=== PATIENT | male | born 1995 | race Caucasian/White ===

== ENCOUNTER 2017-09-26 05:42 | Outpatient (CLI) | payer MEDICAID, OTHER ==
[~2017-09-26] VITALS: Ht 188 cm; Wt 49.0 kg
[~2017-09-26 05:42] MED LIST: AMOX250S70 PO; ETHO250C6 PO
[2017-09-26] MEDS ORDERED: ETHO250S2 PO ×2 (11:08)
--- NOTE | 2017-09-27 14:06 | Physician Query-Final Dx ---
HAL LIVE 09/27/17 1406: Clinic Account Progress/Dx Physician Query: Per Outpatient coding guidelines - the diagnosis of possible cannot be coded - Please give another diagnosis and/or sign/symptom thank you Date of Service Sep 26, 2017 at 05:42 HAI ANTONIO MD 09/29/17 0700: Clinic Account Progress/Dx DIAGNOSIS: Diagnosis right otorrhea/tm perforation HAL LIVE Sep 27, 2017 14:06 HAI ANTONIO MD Sep 29, 2017 07:00
== END 2017-09-26 11:16 ==
LOC: PREOP 05:42
PROVIDERS: ATTEND Otolaryngology Otolaryngology/Facial Plastic Surgery
DX: Z01.818 Encounter for other preprocedural examination (principal); H92.11 Otorrhea, right ear; H72.91 Unspecified perforation of tympanic membrane, right ear

== ENCOUNTER 2017-09-28 06:08 | Day surgery (SDC) | payer MEDICAID ==
[~2017-09-28] VITALS: Ht 188 cm; Wt 49.0 kg
[~2017-09-28 06:08] MED LIST changes: +ETHO250S2 PO
--- OUTSIDE RECORDS SUMMARY | 2017-09-28 06:12 | XMS REPORT ---
Author Author Jessica Khan [facility] Address [address] [place], [place] [address] Care Team Providers Care Systems Administrator Name Role Phone Jessica Khan PCP Unavailable Mehdi Prasad PreferredProvider Unavailable Allergies and Adverse Reactions Name Reaction Notes Barry zhang Plan of Treatment Planned Activity Comments Planned Date Planned Time Plan/Goal Ethosuximide level 06/02/2015 12:00 AM Medications Active Name Start Date Estimated Completion Date SIG Comments ethosuximide 250 mg/5 mL oral solution 10/13/2014 TAKE 5 MILLILITERS BY ORAL ROUTE 2 TIMES A DAY FOR 90 DAYS ethosuximide 250 mg/5 mL oral solution 03/29/2015 TAKE 5 MILLILITERS BY ORAL ROUTE 2 TIMES A DAY FOR 90 DAYS ethosuximide 250 mg/5 mL oral solution 06/21/2015 TAKE 5 MILLILITERS BY ORAL ROUTE 2 TIMES A DAY FOR 90 DAYS ethosuximide 250 mg/5 mL oral solution 09/17/2015 TAKE 5 MILLILITERS BY ORAL ROUTE 2 TIMES A DAY FOR 90 DAYS Flonase Allergy Relief 50 mcg/actuation nasal spray,suspension 10/05/2015 inhale 1 puff by nasal route 2 times a day amoxicillin-pot clavulanate 250-62.5 mg/5 mL oral suspension for reconstitution 08/08/2016 08/15/2016 take 10 milliliters by oral route every 12 hours for 7 days Name Start Date Expiration Date SIG Comments Tamiflu 6 mg/mL oral suspension for reconstitution 08/15/2013 08/20/2013 take 12.5 milliliters (75 mg) by oral route 2 times per day for 5 days ethosuximide 250 mg/5 mL oral solution 01/26/2014 10/23/2014 take 5 milliliters by oral route 2 times a day for 90 days Ciprodex 0.3-0.1 % otic drops,suspension 01/26/2014 02/02/2014 instill 4 drops into affected ear(s) by otic route 2 times per day for 7 days amoxicillin 400 mg/5 mL oral suspension for reconstitution 05/19/2014 12.5ml BID x7 days. Augmentin 250-62.5 mg/5 mL oral suspension for reconstitution 05/21/2015 take 10 milliliters by oral route every 12 hours for 7 days amoxicillin 400 mg/5 mL oral suspension for reconstitution 06/18/20162015 take 16 milliliters by oral route 2 times a day for 7 days Discontinued Name Start Date Discontinued Date SIG Comments loperamide 2 mg oral capsule 06/11/2015 10/04/2015 take 2 capsules (4 mg) by oral route after 1st loose stool, followed by 1 capsule after each subsequent loose stool not to exceed 16 mg/day Zyrtec 10 mg oral tablet 10/05/2015 08/08/2016 take 1 tablet by oral route daily ofloxacin 0.3 % otic drops 12/25/2015 08/08/2016 instill 10 drops (1.5 mg) into right ear by otic route 2 times per day Problem List Description Status Onset Cerebral palsy Active Seizure disorder Active Vital Signs Date Time BP-Sys(mm[Hg] BP-Maria Esther(mm[Hg]) HR(bpm) RR(rpm) Temp WT HT HC BMI BSA BMI Percentile O2 Sat(%) 08/08/2016 8:28:00 AM 126 mmHg 72 mmHg 92 bpm 18 rpm 98.1 F 109.125 lbs 73 in 14.40 kg/m2 1.60 m2 97 % 04/21/2016 11:39:00 AM 20 rpm 97.1 F 108 lbs 73 in 14.2487 kg/ m 1.5884 m 12/24/2015 10:28:00 AM 122 mmHg 62 mmHg 67 bpm 18 rpm 98.2 F 108.062 lbs 73 in 14.26 kg/m2 1.59 m2 98 % 10/04/2015 2:52:00 PM 124 mmHg 66 mmHg 96 bpm 18 rpm 96.5 F 108 lbs 73 in 14.2487 kg/m 1.5884 m 97 % 05/07/2015 9:30:00 AM 112 mmHg 60 mmHg 65 bpm 16 rpm 96 F 109 lbs 73 in 14.38 kg/m2 1.60 m2 98 % 04/23/2014 1:36:00 PM 120 mmHg 68 mmHg 85 bpm 18 rpm 97.4 F 104.125 lbs 73 in 13.7375 kg/m 1.5597 m 97 % 01/26/2014 1:33:00 PM 92 bpm 20 rpm 97.5 F 106 lbs 73 in 13.98 kg/m2 1.57 m2 08/15/2013 9:17:00 AM 102 bpm 20 rpm 97 F 107 lbs 99 % 08/08/2012 10:18:00 AM 102 mmHg 60 mmHg 94 bpm 20 rpm 97.9 F 107 lbs 73 in 14.1168 kg/m 1.5811 m 100 % 95 % Social History Name Description Comments Tobacco Never smoker Lives with both mom and dad Pets at home (outside) dog No smoke exposure 12/24/2015 - student (high school) attends special needs classes at [employer] ([phone]) History of Procedures Date Ordered Description Order Status 06/30/2016 12:00 AM INFLUENZA VAC 4 VALENT PRSRV FREE 3 YRS PLUS IM Reviewed 08/08/2012 12:00 AM Flu > 35 months RHC Reviewed 09/30/2012 12:00 AM IMMUNIZATION ADMIN Reviewed 09/30/2012 12:00 AM VFC Varivax (Chicken Pox Vac) Reviewed 08/15/2013 12:00 AM INFLUENZA A/B AG EIA Reviewed 04/23/2014 12:00 AM Kenalog, Per 10 Mg [facility][id number] Reviewed 04/23/2014 12:00 AM THER/PROPH/DIAG INJ SC/IM Reviewed Results Summary Data and Description Results 08/15/2013 10:10 AM INFLUENZA A & B INFLUENZA A POSITIVE 06/03/2015 11:05 AM Ethosuximide (Zarontin),Serum 52 History Of Immunizations Name Date Admin Mfg Name Mfg Code Trade Name Lot# Route Inj Vis Given Vis Pub CVX Influenza 08/08/2012 sanofi pasteur PMC Fluzone-PF > 3 Years [id number] Intramuscular Right Deltoid 08/08/2012 01/29/2012 141 Varicella 09/30/2012 [employer] MSD Varivax [id number] Subcutaneous Right Arm 10/10/2007 10/10/2007 21 Tdap 08/27/2006 Not Entered NE Not Entered Not Entered Not Entered 07/3007/30/2016 999 DTaP 10/27/1998 Not Entered NE Not Entered Not Entered Not Entered 07/3007/30/2016 20 MMR 10/27/1998 Not Entered NE Not Entered Not Entered Not Entered 201607/30/2016 03 Tdap 08/27/2006 Not Entered NE Not Entered Not Entered Not Entered 07/3007/30/2016 115 Influenza 06/30/2016 [facility] PMC Fluzone [id number] Intramuscular Left Deltoid 06/30/2016 03/17/2014 141 History of Past Illness Name Date of Onset Comments Cerebral palsy Seizure disorder Flu Aug 08 2012 10:18AM Well Child Examination Aug 08 2012 10:18AM Infantile cerebral palsy, unspecified Aug 08 2012 10:18AM Personal history of mental disorder; other mental disorders Aug 08 2012 10: 18AM Varicella Sep 30 2012 1:47PM Nasal congestion Aug 15 2013 9:19AM Upper Respiratory Infection Aug 15 2013 9:19AM Influenza Aug 15 2013 9:19AM Cerebral palsy Jan 26 2014 1:35PM Seizure Disorder Jan 26 2014 1:35PM Otitis media Jan 26 2014 1:35PM Right Otitis Media, Acute Apr 23 2014 1:40PM Upper Respiratory Infections Apr 23 2014 1:40PM Acute suppurative otitis media of right ear without spontaneous rupture of tympanic membrane, recurrence not specified May 07 2015 9:34AM Cerebral palsy May 07 2015 9:34AM Seizure disorder May 07 2015 9:34AM terminal carman use of drug Jun 02 2015 1:42PM Viral gastroenteritis Oct 04 2015 2:55PM Allergic rhinitis, unspecified allergic rhinitis type Oct 04 2015 2:55PM Acute suppurative otitis media of right ear without spontaneous rupture of tympanic membrane, recurrence not specified Dec 24 2015 10:30AM Acute suppurative otitis media of left ear without spontaneous rupture of tympanic membrane, recurrence not specified Apr 21 2016 11:39AM Flu Vaccine Jun 30 2016 4:53PM Recurrent acute suppurative otitis media of right ear without spontaneous rupture of tympanic membrane Aug 08 2016 8:30AM Payers Insurance Name Company Name Plan Name Plan Number Policy Number Policy Group Number Start Date [facility] [id number] N/A BCBS [facility] [id number] N/A History of Encounters Visit Date Visit Type Provider 08/08/2016 Office visit Jessica Khan APRN 06/30/2016 Nurse visit Jessica Khan WINDOW AND SIDING CRAFTSMAN 04/21/2016 Office visit Arturo Domínguez WINDOW AND SIDING CRAFTSMAN 12/24/2015 Office visit Jessica Khan WINDOW AND SIDING CRAFTSMAN 10/04/2015 Office visit Jessica Khan WINDOW AND SIDING CRAFTSMAN 05/07/2015 Office visit Arturo Domínguez WINDOW AND SIDING CRAFTSMAN 04/23/2014 Office visit Jessica Khan WINDOW AND SIDING CRAFTSMAN 01/26/2014 Office visit Arturo Domínguez WINDOW AND SIDING CRAFTSMAN 08/15/2013 Office visit Vanessa Minaya MD 09/30/2012 Nurse visit Vanessa Minaya MD 08/08/2012 Office visit Vanessa Minaya MD
--- OUTSIDE RECORDS SUMMARY | 2017-09-28 06:12 | XMS REPORT ---
Author Author Jessica Khan [facility] Address [address] [place], [place] [address] Care Team Providers Care Welding Machine Operator Gas Metal Arc Name Role Phone Jessica Khan PCP Unavailable Mehdi Prasad PreferredProvider Unavailable Allergies and Adverse Reactions Name Reaction Notes Barry zhang Plan of Treatment Planned Activity Comments Planned Date Planned Time Plan/Goal Ethosuximide level 06/02/2015 12:00 AM Flu vaccine 3 yrs & older, Quadrivalent, Preservative-free - [facility] Medicaid ( single-dose syringe) 06/30/2016 12:00 AM Medications Active Name Start Date [...] by nasal route 2 times a day Zyrtec 10 mg oral tablet 10/05/2015 take 1 tablet by oral route daily ofloxacin 0.3 % otic drops 12/25/2015 instill 10 drops (1.5 mg) into right ear by otic route 2 times per day Name Start Date Expiration Date SIG Comments [...] loose stool not to exceed 16 mg/day Problem List Description Status Onset Cerebral palsy Active Seizure disorder Active Vital Signs Date Time BP-Sys(mm[Hg] BP-Maria Esther(mm[Hg]) HR(bpm) RR(rpm) Temp WT HT HC BMI BSA BMI Percentile O2 Sat(%) 04/21/2016 11:39:00 AM 20 rpm 97.1 F 108 lbs 73 in 14.25 kg/ m2 1.59 m2 12/24/2015 10:28:00 AM 122 mmHg 62 mmHg 67 bpm 18 rpm 98.2 F 108.062 lbs 73 in 14.257 kg/m 1.5889 m 98 % 10/04/2015 2:52:00 PM 124 mmHg 66 mmHg 96 bpm 18 rpm 96.5 F 108 lbs 73 in 14.25 kg/m2 1.59 m2 97 % 05/07/2015 9:30:00 AM 112 mmHg 60 mmHg 65 bpm 16 rpm 96 F 109 lbs 73 in 14.3807 kg/m 1.5958 m 98 % 04/23/2014 1:36:00 PM 120 mmHg 68 mmHg 85 bpm 18 rpm 97.4 F 104.125 lbs 73 in 13.74 kg/m2 1.56 m2 97 % 01/26/2014 1:33:00 PM 92 bpm 20 rpm 97.5 F 106 lbs 73 in 13.9849 kg/m 1.5737 m 08/15/2013 9:17:00 AM 102 bpm 20 rpm 97 F 107 lbs 99 % 08/08/2012 10:18:00 AM 102 mmHg 60 mmHg 94 bpm 20 rpm 97.9 F 107 lbs 73 in 14.12 kg/m2 1.58 m2 100 % 95 % Social History Name Description Comments Tobacco Never smoker Lives with both mom and dad Pets at home (outside) dog No smoke exposure 12/24/2015 - student (high school) attends special needs classes at [employer] [facility] ([phone]) History of Procedures Date Ordered Description Order Status 08/08/2012 12:00 AM Flu > 35 months RHC Reviewed 09/30/2012 12:00 AM IMMUNIZATION ADMIN Reviewed 09/30/2012 12:00 AM VFC Varivax (Chicken Pox Vac) Reviewed 08/15/2013 12:00 AM INFLUENZA A/B AG EIA Reviewed 04/23/2014 12:00 AM Kenalog, Per 10 Mg [facility]#[id number] RHC Medicaid Reviewed 04/23/2014 12:00 AM THER/PROPH/DIAG INJ SC/IM Reviewed Results Summary Data and Description Results 08/15/2013 10:10 AM INFLUENZA A & B INFLUENZA A POSITIVE 06/03/2015 11:05 AM Ethosuximide (Zarontin),Serum 52 History Of Immunizations Name Date Admin Mfg Name Mfg Code Trade Name Lot# Route Inj Vis Given Vis Pub CVX Influenza 08/08/2012 sanofi pasteur PMC Fluzone-PF > 3 Years [id number] Intramuscular Right Deltoid 08/08/2012 01/29/2012 141 Varicella 09/30/2012 Merck & Co., Inc. MSD Varivax [id number] Subcutaneous Right Arm 10/10/2007 10/10/2007 21 Tdap 08/27/2006 Not Entered NE Not Entered Not Entered Not Entered 07/3007/30/2015 999 DTaP 10/27/1998 Not Entered NE Not Entered Not Entered Not Entered 07/3007/30/2015 20 MMR 10/27/1998 Not Entered NE Not Entered Not Entered Not Entered 201507/30/2015 03 Tdap 08/27/2006 Not Entered NE Not Entered Not Entered Not Entered 07/3007/30/2015 115 History of Past Illness Name Date of [...] 9:34AM Seizure disorder May 07 2015 9:34AM half-way use of drug Jun 02 2015 1:42PM [...] 11:39AM Flu Vaccine Jun 30 2016 4:53PM Payers Insurance Name Company Name Plan Name Plan Number Policy Number Policy Group Number [facility] [id number] [id number] N/A History of Encounters Visit Date Visit Type Provider 06/30/2016 Nurse visit Jessica Khan MANAGER COST 04/21/2016 Office visit Arturo Domínguez MANAGER COST 12/24/2015 Office visit Jessica Khan MANAGER COST 10/04/2015 Office visit Jessica Khan MANAGER COST 05/07/2015 Office visit Arturo Domínguez MANAGER COST 04/23/2014 Office visit Jessica Khan MANAGER COST 01/26/2014 Office visit Arturo Domínguez MANAGER COST 08/15/2013 Office visit Vanessa Minaya MD 09/30/2012 Nurse visit Vanessa Minaya MD 08/08/2012 Office visit Vanessa Minaya MD
--- OUTSIDE RECORDS SUMMARY | 2017-09-28 06:13 | XMS REPORT ---
Author Author Angeline Morillo [facility] Address [address] [place], [place] [address] Care Team Providers Care Cereal Supervisor Name Role Phone Angeline Moirllo PCP Mehdi Prasad PreferredProvider Unavailable Allergies and Adverse Reactions Name Reaction Notes Barry zhang Plan of Treatment Not available. Medications Active Name Start Date Estimated Completion [...] DAYS ethosuximide 250 mg/5 mL oral solution 11/15/2016 TAKE 5 MILLILITERS BY ORAL ROUTE 2 TIMES A DAY FOR 90 DAYS ethosuximide 250 mg/5 mL oral solution 02/02/2017 TAKE 5 MILLILITERS BY ORAL ROUTE 2 TIMES A DAY FOR 90 DAYS Ciprodex 0.3-0.1 % otic (ear) drops,suspension 05/02/2017 instill 4 drops into right ear by otic route 2 times per day for 7 days Name Start Date Expiration [...] 2 times a day for 7 days amoxicillin-pot clavulanate 250-62.5 mg/5 mL oral suspension for reconstitution 10/17/2016 10/24/2016 take 10 milliliters by oral route every 12 hours for 7 days Discontinued Name Start Date Discontinued Date SIG Comments loperamide 2 mg oral capsule 06/11/2015 10/04/2015 take 2 capsules (4 mg) by oral route after 1st loose stool, followed by 1 capsule after each subsequent loose stool not to exceed 16 mg/day Flonase Allergy Relief 50 mcg/actuation nasal spray,suspension 10/05/20152016 inhale 1 puff by nasal route 2 times a day Zyrtec 10 mg oral tablet 10/05/2015 08/08/2016 take 1 tablet by oral route daily ofloxacin 0.3 % otic drops 12/25/2015 08/08/2016 instill 10 drops (1.5 mg) into right ear by otic route 2 times per day Augmentin 250-62.5 mg/5 mL oral suspension for reconstitution 04/10/20172016 take 18 milliliters by oral route 2 times a day for 7 days Problem List Description Status Onset Cerebral palsy Active Seizure Disorder Active Vital Signs Date Time BP-Sys(mm[Hg] BP-Maria Esther(mm[Hg]) HR(bpm) RR(rpm) Temp WT HT HC BMI BSA BMI Percentile O2 Sat(%) 05/02/2017 8:40:00 AM 106 mmHg 64 mmHg 57 bpm 20 rpm 100 lbs 73 in 13.19 kg/m2 1.53 m2 98 % 04/10/2017 9:53:00 AM 98 bpm 20 rpm 97.9 F 99.375 lbs 73 in 13.1108 kg/m 1.5237 m 97 % 08/08/2016 8:28:00 AM 126 mmHg 72 mmHg [...] (high school) attends special needs classes at [employer] [facility] ([phone]) History of Procedures Date Ordered Description Order Status 06/02/2015 12:00 AM ASSAY OF ETHOSUXIMIDE Reviewed 06/30/2016 12:00 AM INFLUENZA VAC 4 VALENT PRSRV FREE 3 YRS PLUS IM Reviewed 08/08/2012 12:00 AM Flu > 35 months RHC Reviewed 09/30/2012 12:00 AM IMMUNIZATION ADMIN Reviewed 09/30/2012 12:00 AM VFC Varivax (Chicken Pox Vac) Reviewed 08/15/2013 12:00 AM INFLUENZA A/B AG EIA Reviewed 04/23/2014 12:00 AM Kenalog, Per 10 Mg [facility]#[id number] RHC Medicaid Reviewed 04/23/2014 12:00 AM THER/PROPH/DIAG INJ SC/IM Reviewed Results Summary Date and Description Results 08/15/2013 10:10 AM INFLUENZA A & B INFLUENZA A POSITIVE History Of Immunizations Name Date Admin Mfg Name Mfg Code Trade Name Lot# Route Inj Vis Given Vis Pub CVX Influenza 08/08/2012 sanofi pasteur PMC Fluzone-PF > 3 Years [id number] Intramuscular Right Deltoid 08/08/2012 01/29/2012 141 Varicella 09/30/2012 Merck [employer] Co., Inc[employer] MSD Varivax [id number] Subcutaneous Right Arm 10/10/2007 10/10/2007 21 Tdap 08/27/2006 Not Entered NE Not Entered Not Entered Not Entered 07/3007/30/2016 999 DTaP 10/27/1998 Not Entered NE Not Entered Not Entered Not Entered 07/3007/30/2016 20 MMR 10/27/1998 Not Entered NE Not Entered Not Entered Not Entered 201607/30/2016 03 Tdap 08/27/2006 Not Entered NE Not Entered Not Entered Not Entered 07/3007/30/2016 115 Influenza 06/30/2016 sanofi pasteur PMC Fluzone [id number] Intramuscular Left Deltoid 06/30/2016 03/17/2014 141 History of Past Illness Name Date of Onset Comments Cerebral palsy Seizure Disorder Flu Aug 08 2012 10:18AM Well Child [...] Seizure disorder May 07 2015 9:34AM terminal gauger use of drug Jun 02 2015 1:42PM [...] of tympanic membrane Aug 08 2016 8:30AM Otitis media Apr 10 2017 9:57AM Right acute serous otitis media, recurrence not specified May 02 2017 8:43AM Payers Insurance Name Company Name Plan Name Plan Number Policy Number Policy Group Number Start Date [facility] [id number] N/A BCBS [facility] [id number] N/A History of Encounters Visit Date Visit Type Provider 05/02/[address] Angeline Morillo DO 04/10/[address] Angeline Morillo DO 08/08/2016 Office visit Jessica Khan APRN 06/30/2016 Nurse visit Jessica Khan APRN 04/21/2016 Office visit Arturo Domínguez APRN 12/24/2015 Office visit Jessica Khan APRN 10/04/2015 Office visit Jessica Khan APRN 05/07/2015 Office visit Arturo Domínguez APRN 04/23/2014 Office visit Jessica Khan APRN 01/26/2014 Office visit Arturo Domínguez APRN 08/15/2013 Office visit Vanessa Minaya MD 09/30/2012 Nurse visit Vanessa Minaya MD 08/08/2012 Office visit Vanessa Minaya MD
--- OUTSIDE RECORDS SUMMARY | 2017-09-28 06:13 | XMS REPORT ---
Author LENNOX Hein [facility] eClinicalWorks Address Unknown Phone Unavailable Care Team Providers Care Entertainment Director Name Role Phone LENNOX MAHAJAN CP Unavailable Allergies, Adverse Reactions, Alerts Substance Reaction Event Type Vantin Hives Drug Allergy Problems Problem Type Condition Code Onset Dates Condition Status Assessment Otitis media of right ear H66.91 Active Assessment Routine physical examination Z00.00 Active Medications Medication Code System Code Instructions Start Date End Date Status Dosage Augmentin [facility] [address]-39 250-62.5 MG/5ML Orally every 12 hrs Jul 01, 2015 Jul 11, 2015 10 ml Ethosuximide [facility] [address]-98 250 MG/5ML Orally not defined Procedures Procedure Coding System Code Date Office Visit, New Pt., Level 4 CPT-4 36653 Jul 01, 2015 Vital Signs Date/Time: Jul 01, 2015 Temperature 98.3 F Weight 108.7 lbs Height 74 in BMI 13.95 Index Blood Pressure Diastolic 64 mmHg Blood Pressure Systolic 124 mmHg Cardiac Monitoring Heart Rate 68 bpm Results No Known Results Summary Purpose eClinicalWorks Submission
--- OUTSIDE RECORDS SUMMARY | 2017-09-28 06:13 | XMS REPORT ---
Author Author Jessica Khan [facility] Address [address] [place], [place] [address] Care Team Providers Care Enrollment Specialist Name Role Phone Jessica Khan PCP Mehdi Prasad PreferredProvider Allergies and Adverse Reactions Name Reaction Notes Barry zhang Plan of Treatment Planned Activity Comments Planned Date Planned Time Plan/Goal CBC With Auto Differential 07/13/2017 12:00 AM CMP (comprehensive metabolic panel) 07/13/2017 12:00 AM Medications Active Name Start Date Estimated Completion Date SIG Comments ethosuximide 250 mg/5 mL oral solution 10/13/2014 TAKE 5 MILLILITERS BY ORAL ROUTE 2 TIMES A DAY FOR 90 DAYS ethosuximide 250 mg/5 mL oral solution 03/29/2015 TAKE 5 MILLILITERS BY ORAL ROUTE 2 TIMES A DAY FOR 90 DAYS ethosuximide 250 mg/5 mL oral solution 05/07/2017 TAKE 5 MILLILITERS BY ORAL ROUTE 2 TIMES A DAY FOR 90 DAYS Ciprodex 0.3-0.1 % otic (ear) drops,suspension 07/13/2017 instill 4 drops into right ear by otic route 2 times per day for 7 days Name Start Date Expiration Date SIG Comments Tamiflu 6 mg/mL oral suspension for reconstitution 08/15/2013 08/20/2013 take 12.5 milliliters (75 mg) by oral route 2 times per day for 5 days Ciprodex 0.3-0.1 % otic drops,suspension 01/26/2014 [...] HC BMI BSA BMI Percentile O2 Sat(%) 07/13/2017 10:02:00 AM 100 mmHg 62 mmHg 74 bpm 20 rpm 97 F 106 lbs 73 in 13.98 kg/m2 1.57 m2 99 % 05/02/2017 8:40:00 AM 106 mmHg 64 mmHg 57 bpm 20 rpm 100 lbs 73 in 13.1933 kg/m 1.5285 m 98 % 04/10/2017 9:53:00 AM 98 bpm 20 rpm 97.9 F 99.375 lbs 73 in 13.11 kg/m2 1.52 m2 97 % 08/08/2016 8:28:00 AM 126 mmHg 72 mmHg 92 bpm 18 rpm 98.1 F 109.125 lbs 73 in 14.3972 kg/m 1.5967 m 97 % 04/21/2016 11:39:00 AM 20 rpm [...] (high school) attends special needs classes at [facility] ([phone]) History of Procedures Date Ordered Description Order [...] 04/23/2014 12:00 AM Kenalog, Per 10 Mg [facility]#[id number] RHC Medicaid Reviewed 04/23/2014 12:00 AM THER/PROPH/DIAG INJ SC/IM Reviewed Results Summary Date and Description Results 08/15/2013 10:10 AM INFLUENZA A & B INFLUENZA A POSITIVE History Of Immunizations Name Date Admin Mfg Name Mfg Code Trade Name Lot# Route Inj Vis Given Vis Pub CVX Influenza 08/08/2012 sanofi pasteur PMC Fluzone-PF > 3 Years [id number] Intramuscular Right Deltoid 08/08/2012 01/29/2012 141 Varicella 09/30/2012 [employer]ck & Co., Inc. MSD Varivax [id number] Subcutaneous Right Arm 10/10/2007 10/10/2007 21 Tdap [...] 115 Influenza 06/30/2016 sanofi pasteur PMC Fluzone [id number] Intramuscular Left Deltoid 06/30/2016 03/17/2014 141 History [...] 9:34AM Seizure disorder May 07 2015 9:34AM [facility] use of drug Jun 02 2015 1:42PM [...] recurrence not specified May 02 2017 8:43AM Cerebral palsy Jul 13 2017 10:04AM Seizure disorder Jul 13 2017 10:04AM Recurrent acute suppurative otitis media of right ear without spontaneous rupture of tympanic membrane Jul 13 2017 10:04AM Annual physical exam Jul 13 2017 10:04AM Payers Insurance Name Company Name Plan Name Plan Number Policy Number Policy Group Number Start Date [facility] [id number] N/A BCBS [facility] [id number] N/A History of Encounters Visit Date Visit Type Provider 07/13/2017 Office visit Jessica Khan APRN 05/02/[address] Angeline Morillo DO [...]
--- OUTSIDE RECORDS SUMMARY | 2017-09-28 06:13 | XMS REPORT ---
Author Jessica Watkins Organization [facility] Address [address] [place], [place] [id number] Care Team Providers Care Milk House Worker Name Role Phone Jessica Khan PCP Unavailable Allergies and Adverse Reactions Name Reaction Notes Barry zhang Plan of Treatment Planned Activity Comments Planned Date Planned Time Plan/Goal ASSAY OF ETHOSUXIMIDE 06/02/2015 12:00 AM Medications Active Name Start [...] take 1 tablet by oral route daily amoxicillin 400 mg/5 mL oral suspension for reconstitution 12/25/20152015 take 12.5 milliliters by oral route 2 times a day for 7 days ofloxacin 0.3 % otic drops 12/25/2015 instill [...] HC BMI BSA BMI Percentile O2 Sat(%) 12/24/2015 10:28:00 AM 122 mmHg 62 mmHg [...] 95 % Social History Name Description Comments Lives with both mom and dad Pets at home (outside) dog No smoke exposure 12/24/2015 - student (high school) attends special needs classes at [facility] [employer] ([phone]) History of Procedures Date Ordered Description Order Status 08/08/2012 12:00 AM Flu > 35 months RHC Reviewed 09/30/2012 12:00 AM IMMUNIZATION ADMIN Reviewed 09/30/2012 12:00 AM VFC Varivax (Chicken Pox Vac) Returned 08/15/2013 12:00 AM INFLUENZA A/B AG EIA Reviewed 04/23/2014 12:00 AM Kenalog, Per 10 Mg [facility]#[id number] RHC Medicaid Reviewed 04/23/2014 12:00 AM THER/PROPH/DIAG INJ SC/IM Reviewed Results Summary Data and Description Results 08/15/2013 10:10 AM INFLUENZA A & B INFLUENZA A POSITIVE History Of Immunizations Name Date Admin Mfg Name Mfg Code Trade Name Lot# Route Inj Vis Given Vis Pub CVX Influenza 08/08/2012 sanofi pasteur PMC Fluzone-PF > 3 Years [id number] Intramuscular Right Deltoid 08/08/2012 01/29/2012 141 Varicella 09/30/2012 Merck & Co., Inc. 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 Jun 02 2015 1:42PM Viral gastroenteritis Oct 04 2015 2:55PM Allergic rhinitis, unspecified allergic rhinitis type Oct 04 2015 2:55PM Acute suppurative otitis media of right ear without spontaneous rupture of tympanic membrane, recurrence not specified Dec 24 2015 10:30AM Payers Insurance Name Company Name Plan Name Plan Number Policy Number Policy Group Number Start Date [facility] [id number] N/A [id number] N/A History of Encounters Visit Date Visit Type Provider 12/24/2015 Office visit Jessica Khan SLIME PLANT OPERATOR HELPER 10/04/2015 Office visit Jessica Khan SLIME PLANT OPERATOR HELPER 05/07/2015 Office visit Arturo Domínguez APRN 04/23/2014 Office visit Jessica Khan SLIME PLANT OPERATOR HELPER 01/26/2014 Office visit Arturo Domínguez SLIME PLANT OPERATOR HELPER 08/15/2013 Office visit Vanessa Minaya MD 09/30/2012 Nurse visit Vanessa Minaya MD 08/08/2012 Office visit Vanessa Minaya MD
--- OUTSIDE RECORDS SUMMARY | 2017-09-28 06:14 | XMS REPORT ---
Author Author Angeline Morillo [facility] Address [address] [place], [place] [phone] Care Team Providers Care Trading Specialist Name Role Phone Angeline Morillo PCP Mehdi Prasad PreferredProvider Unavailable Allergies and [...] 2 TIMES A DAY FOR 90 DAYS Augmentin 250-62.5 mg/5 mL oral suspension for reconstitution 04/10/2017 take 18 milliliters by oral route 2 times a day for 7 days Name Start Date [...] HC BMI BSA BMI Percentile O2 Sat(%) 04/10/2017 9:53:00 AM 98 bpm 20 rpm [...] F 104.125 lbs 73 in 13.7375 kg/m 1.56 m2 97 % 01/26/2014 1:33:00 PM 92 bpm 20 rpm 97.5 F 106 lbs 73 in 13.98 kg/m2 1.5737 m 08/15/2013 9:17:00 AM 102 bpm [...] (high school) attends special needs classes at [employer] [facility] ([phone]) History of Procedures Date Ordered Description Order Status 06/02/2015 12:00 AM ASSAY OF ETHOSUXIMIDE Reviewed 06/30/2016 12:00 AM INFLUENZA VAC 4 VALENT PRSRV FREE 3 YRS PLUS IM Reviewed 08/08/2012 12:00 AM Flu > 35 months C Reviewed 09/30/2012 12:00 AM IMMUNIZATION ADMIN Reviewed 09/30/2012 12:00 AM VFC Varivax (Chicken Pox Vac) Reviewed 08/15/2013 12:00 AM INFLUENZA A/B AG EIA Reviewed 04/23/2014 12:00 AM Kenalog, Per 10 Mg [facility]#[id number] [facility] Medicaid Reviewed 04/23/2014 12:00 AM THER/PROPH/DIAG INJ SC/IM Reviewed Results Summary Date and Description Results 08/15/2013 10:10 AM INFLUENZA A & B INFLUENZA A POSITIVE History Of Immunizations Name Date Admin Mfg Name Mfg Code Trade Name Lot# Route Inj Vis Given Vis Pub CVX Influenza 08/08/2012 sanofi pasteur PMC Fluzone-PF > 3 Years [id number] Intramuscular Right Deltoid 08/08/2012 01/29/2012 141 Varicella 09/30/2012 Merck & Co., Inc. 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 Angeline Morillo DO 08/08/2016 Office visit Jessica Khan FUNERAL HOME ASSISTANT 06/30/2016 Nurse visit Jessica Khan APRN 04/21/2016 [...]
--- OUTSIDE RECORDS SUMMARY | 2017-09-28 06:14 | XMS REPORT ---
Author Author Jessica Khan [facility] Address [address] [place], [place] [phone] Care Team Providers Care Rat Farmer Name Role Phone Jessica Khan PCP Mehdi [...] (high school) attends special needs classes at [employer] ([phone]) History of Procedures Date Ordered Description Order [...] 04/23/2014 12:00 AM Kenalog, Per 10 Mg [facility]#[id number] RHC Medicaid Reviewed 04/23/2014 12:00 AM THER/PROPH/DIAG INJ SC/IM Reviewed Results Summary Date and Description Results 08/15/2013 10:10 AM INFLUENZA A & B INFLUENZA A POSITIVE History Of Immunizations Name Date Admin Mfg Name Mfg Code Trade Name Lot# Route Inj Vis Given Vis Pub CVX Influenza 08/08/2012 sanofi pasteur PMC Fluzone-PF > 3 Years [id number] Intramuscular Right Deltoid 08/08/2012 01/29/2012 141 Varicella 09/30/2012 Merck & Co., Inc. MSD Varivax [id number] Subcutaneous Right Arm 10/10/2007 10/10/2007 21 Tdap [...] 115 Influenza 06/30/2016 sanofi pasteur PMC Fluzone [id number] Intramuscular Left Deltoid 06/30/2016 03/17/2014 141 History [...] 9:34AM Seizure disorder May 07 2015 9:34AM alf use of drug Jun 02 2015 1:42PM [...] Policy Number Policy Group Number Start Date [facility] [id number] N/A BCBS [facility] [id number] N/A History of Encounters Visit Date Visit [...]
--- OUTSIDE RECORDS SUMMARY | 2017-09-28 06:14 | XMS REPORT ---
Author Author Arturo Domínguez [facility] Address [address] [place], [place] [address] Care Team Providers Care Kaiawhina Kohanga Reo Name Role Phone Arturo Domínguez PCP Allergies and Adverse Reactions Name Reaction Notes [...] 400 mg/5 mL oral suspension for reconstitution 04/25/20162015 take 16 milliliters by oral route 2 [...] (high school) attends special needs classes at [employer] ([phone]) History of Procedures Date Ordered Description Order Status 08/08/2012 12:00 AM Flu > 35 months RHC Reviewed 09/30/2012 12:00 AM IMMUNIZATION ADMIN Reviewed 09/30/2012 12:00 AM VFC Varivax (Chicken Pox Vac) Returned 08/15/2013 12:00 AM INFLUENZA A/B AG EIA Reviewed 04/23/2014 12:00 AM Kenalog, Per 10 Mg [facility]#[id number] RHC Medicaid Reviewed 04/23/2014 12:00 AM THER/PROPH/DIAG INJ SC/IM Reviewed Results Summary Data and Description Results 08/15/2013 10:10 AM INFLUENZA A & B INFLUENZA A POSITIVE History Of Immunizations Name Date Admin Mfg Name Mfg Code Trade Name Lot# Route Inj Vis Given Vis Pub CVX Influenza 08/08/2012 sanofi pasteur PMC Fluzone-PF > 3 Years [id number] Intramuscular Right Deltoid 08/08/2012 01/29/2012 141 Varicella 09/30/2012 Merck & Co., Inc. 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 Jun 02 2015 1:42PM Viral gastroenteritis Oct 04 2015 2:55PM Allergic rhinitis, unspecified allergic rhinitis type Oct 04 2015 2:55PM Acute suppurative otitis media of right ear without spontaneous rupture of tympanic membrane, recurrence not specified Dec 24 2015 10:30AM Acute suppurative otitis media of left ear without spontaneous rupture of tympanic membrane, recurrence not specified Apr 21 2016 11:39AM Payers Insurance Name Company Name Plan Name Plan Number Policy Number Policy Group Number Start Date [facility] [id number] N/A BCBS [facility] [id number] N/A History of Encounters Visit Date Visit Type Provider 04/21/2016 Office visit Arturo Domínguez JUSTICE COURT JUDGE 12/24/2015 Office visit Jessica Khan APRN 10/04/2015 Office visit Jessica Khan APRN 05/07/2015 Office visit Arturo Domínguez JUSTICE COURT JUDGE 04/23/2014 Office visit Jessica Khan APRN 01/26/2014 Office visit Arturo Domínguez JUSTICE COURT JUDGE 08/15/2013 Office visit Vanessa Minaya MD 09/30/2012 Nurse visit Vanessa Minaya MD 08/08/2012 Office visit Vanessa Minaya MD
--- OUTSIDE RECORDS SUMMARY | 2017-09-28 06:15 | XMS REPORT ---
Author Author Arturo Domínguez [facility] Address [address] [place], [place] [address] Care Team Providers Care Furniture Salesperson Name Role Phone Arturo Domínguez PCP Allergies [...] 250-62.5 mg/5 mL oral suspension for reconstitution 05/07/201505/14 take 10 milliliters by oral route every [...] for reconstitution 05/19/2014 12.5ml BID x7 days. Problem List Description Status Onset Cerebral palsy Active Seizure disorder Active Vital Signs Date Time BP-Sys(mm[Hg] BP-Maria Esther(mm[Hg]) HR(bpm) RR(rpm) Temp WT HT HC BMI BSA BMI Percentile O2 Sat(%) 05/07/2015 9:30:00 AM 112 mmHg 60 mmHg [...] at home (outside) dog No smoke exposure student (high school) attends special needs classes at [employer] ([phone]) History of Procedures Date Ordered Description Order Status 08/08/2012 12:00 AM Flu > 35 months RHC Reviewed 09/30/2012 12:00 AM IMMUNIZATION ADMIN Reviewed 09/30/2012 12:00 AM VFC Varivax (Chicken Pox Vac) Returned 08/15/2013 12:00 AM INFLUENZA A/B AG EIA Reviewed 04/23/2014 12:00 AM Kenalog, Per [address] [facility]#[id number] RHC Medicaid Reviewed 04/23/2014 12:00 AM THER/PROPH/DIAG INJ SC/IM Reviewed Results Summary Data and Description Results 08/15/2013 10:10 AM INFLUENZA A & B INFLUENZA A POSITIVE History Of Immunizations Name Date Admin Mfg Name Mfg Code Trade Name Lot# Route Inj Vis Given Vis Pub CVX Influenza 08/08/2012 sanofi pasteur PMC Fluzone-PF > 3 Years [id number] Intramuscular Right Deltoid 08/08/2012 01/29/2012 141 Varicella 09/30/2012 Merck & Co., Inc. MSD Varivax [id number] Subcutaneous Right Arm 10/10/2007 10/10/2007 21 Tdap 08/27/2006 Not Entered NE Not Entered Not Entered Not Entered 07/3007/30/2014 999 DTaP 10/27/1998 Not Entered NE Not Entered Not Entered Not Entered 07/3007/30/2014 20 MMR 10/27/1998 Not Entered NE Not Entered Not Entered Not Entered 201407/30/2014 03 Tdap 08/27/2006 Not Entered NE Not Entered Not Entered Not Entered 07/3007/30/2014 115 History of Past Illness Name Date [...] 9:34AM Seizure disorder May 07 2015 9:34AM Payers Insurance Name Company Name Plan Name Plan Number Policy Number Policy Group Number [facility] [id number] N/[facility] [id number] N/A History of Encounters Visit Date Visit Type Provider 05/07/2015 Office visit Arturo Domínguez CHARGING MANIPULATOR 04/23/2014 Office visit Jessica Khan CHARGING MANIPULATOR 01/26/2014 Office visit Arturo Domínguez CHARGING MANIPULATOR 08/15/2013 Office visit Vanessa Minaya MD 09/30/2012 Nurse visit Vanessa Minaya MD 08/08/2012 Office visit Vanessa Minaya MD
--- OUTSIDE RECORDS SUMMARY | 2017-09-28 06:15 | XMS REPORT ---
Author Author Arturo Domínguez [facility] Address [address] [place], [place] [address] Care Team Providers Care Rand Sewer Name Role Phone Arturo Domínguez PCP Allergies [...] 2 TIMES A DAY FOR 90 DAYS Name Start Date Expiration Date SIG Comments [...] route every 12 hours for 7 days Problem List Description Status [...] (high school) attends special needs classes at [employer] [facility] ([phone]) History of Procedures Date Ordered Description Order Status 08/08/2012 12:00 AM Flu > 35 months RHC Reviewed 09/30/2012 12:00 AM IMMUNIZATION ADMIN Reviewed 09/30/2012 12:00 AM VFC Varivax (Chicken Pox Vac) Returned 08/15/2013 12:00 AM INFLUENZA A/B AG EIA Reviewed 04/23/2014 12:00 AM Kenalog, Per 10 Mg [facility]#[id number] [facility] Medicaid Reviewed 04/23/2014 12:00 AM THER/PROPH/DIAG INJ SC/IM Reviewed Results Summary Data and Description Results 08/15/2013 10:10 AM INFLUENZA A & B INFLUENZA A POSITIVE History Of Immunizations Name Date Admin Mfg Name Mfg Code Trade Name Lot# Route Inj Vis Given Vis Pub CVX Influenza 08/08/2012 sanofi pasteur PMC Fluzone-PF > 3 Years [id number] Intramuscular Right Deltoid 08/08/2012 01/29/2012 141 Varicella 09/30/2012 Merck [employer] Co., Inc. 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 Jun 02 2015 1:42PM Payers Insurance Name Company Name Plan Name Plan Number Policy Number Policy Group Number Start Date [facility] [id number] N/A Bcbs [facility] [id number] N/A History of Encounters Visit Date Visit Type Provider 05/07/2015 Office visit Arturo Domínguez MANDOLIN REPAIR PERSON 04/23/2014 Office visit Jessica Khan MANDOLIN REPAIR PERSON 01/26/2014 Office visit Arturo Domínguez MANDOLIN REPAIR PERSON 08/15/2013 Office visit Vanessa Minaya MD 09/30/2012 Nurse visit Vanessa Minaya MD 08/08/2012 Office visit Vanessa Minaya MD
--- OUTSIDE RECORDS SUMMARY | 2017-09-28 06:15 | XMS REPORT | Continuity of Care Document ---
Author Author [facility] Organization [facility] Address Unknown Phone Unavailable Allergies Active Description Code Type Severity Reaction Onset Reported/Identified Relationship to Patient Clinical Status Yes cefpodoxime [id number] Drug Allergy Moderate HIVES 07/08/2015 Medications There is no data. Problems Date Dx Coded Attending Type Code Diagnosis Diagnosed By 07/08/2015 ARTURO CONRAD DDS Ot K02.9 07/08/2015 ARTURO CONRAD DDS Ot Z01.818 07/13/2015 ANAMARIA SHAWS, ARTURO Wright Ot G80.9 07/13/2015 ANAMARIA DDS, ARTURO Wright Ot K02.9 07/13/2015 ANAMARIA SHAWS, ARTURO Wright Ot K05.6 07/15/2015 ANAMARIA DDS, ARTURO Wright Ot K02.9 07/15/2015 ANAMARIA DDS, ARTURO Wright Ot Z01.818 08/06/2015 ANAMARIA DDS, ARTURO Wright Ot K02.9 08/06/2015 ANAMARIA DDS, ARTURO Wright Ot Z01.818 08/06/2015 ANAMARIA DDS, ARTURO D Ot K02.9 08/06/2015 ANAMARIA DDS, ARTURO Wright Ot Z01.818 Procedures There is no data. Results There is no data. Encounters ACCT No. Visit Date/Time Discharge Status Pt. Type Provider Facility Loc./Unit Complaint [id number] 09/26/2017 05:42:00 09/26/2017 11:16:00 DIS Outpatient HAI ANTONIO MD [facility] PREOP POSSIBLE FOREIGN BODY [id number] 07/13/2015 08:48:00 07/13/2015 12:25:00 DIS Outpatient ARTURO CONRAD DDS [facility] [id number] 07/08/2015 10:00:00 07/08/2015 23:59:59 CLS Outpatient ARTURO CONRAD DDS [facility] PREOP [id number] 09/28/2017 06:08:00 ACT Outpatient PACO MILTON, HAI Mehta [facility] SDC POSSIBLE FOREIGN BODY RIGHT EAR [id number] 07/13/2017 10:52:10 07/13/2017 23:59:59 CLS Outpatient Jessica Khan [id number] 05/02/2017 09:33:48 05/02/2017 23:59:59 CLS Outpatient Angeline Morillo [id number] 04/10/2017 10:31:42 04/10/2017 23:59:59 CLS Outpatient Angeline Morillo [id number] 08/08/2016 09:23:00 08/08/2016 23:59:59 CLS Outpatient Jessica Khan [id number] 06/30/2016 12:29:40 06/30/2016 23:59:59 CLS Outpatient Jessica Khan [id number] 04/21/2016 12:31:44 04/21/2016 23:59:59 CLS Outpatient Arturo Domínguez [id number] 10/04/2015 15:45:50 10/04/2015 23:59:59 CLS Outpatient BillJessica [id number] 05/07/2015 10:16:40 05/07/2015 23:59:59 CLS Outpatient Arturo Domínguez [id number] 04/23/2014 14:22:32 04/23/2014 23:59:59 CLS Outpatient Jessica Khan [id number] 01/26/2014 18:24:06 01/26/2014 23:59:59 CLS Outpatient Arturo Domínguez [id number] 08/15/2013 10:15:15 08/15/2013 23:59:59 CLS Outpatient Vanessa Minaya
[2017-09-28 06:30] VITALS: BP 109/55
[2017-09-28] MEDS ORDERED: proPOfol 200 MG/20 ML (DIPRIVAN) VIAL IV ONE (07:08)
--- NOTE | 2017-09-28 07:09 | Progress Note-Pre Operative ---
Pre-Operative Progress Note H&P Reviewed The H&P was reviewed, patient examined and no changes noted. Date Seen by Provider: Sep 28, 2017 Time Seen by Provider: 06:30 Date H&P Reviewed: Sep 28, 2017 Time H&P Reviewed: 06:30 Pre-Operative Diagnosis: Crhonic Right Otorrhea, Possible foreign body right ear HAI ANTONIO MD Sep 28, 2017 7:09 am
[2017-09-28] MEDS ORDERED: LACTATED RINGERS 1,000 ML IV PRN (07:30)
--- NOTE | 2017-09-28 07:32 | Progress Note-Post Operative ---
Post-Operative Progess Note Surgeon (s)/Utility Manager (s) Surgeon HAI ANTONIO MD Utility Manager n/a Pre-Operative Diagnosis Crhonic Right Otorrhea, Possible foreign body right ear Post-Operative Diagnosis same Post-Op Procedure Note Date of Procedure: Sep 28, 2017 Name of Procedure Performed: EUA of Right EAr Description & Findings Description and Findings: n/a Anesthesia Type lma Estimated Blood Loss minimal Packing none. Specimen(s) collected/removed right EAr Culture HAI ANTONIO MD Sep 28, 2017 7:32 am
[2017-09-28] MEDS ORDERED: SEVOFLURANE (ULTANE) 15 ML INHAL SOLN ONE (07:36)
[2017-09-28] MEDS ORDERED: APAP 325 MG/10.15 ML LIQ (TYLENOL) UDC PO PRN (07:45)
--- NOTE | 2017-09-28 08:11 | Anesthesia-General Post-Op ---
General Patient Condition Mental Status/LOC: Same as Preop Cardiovascular: Satisfactory Nausea/Vomiting: Absent Respiratory: Satisfactory Pain: Controlled Complications: Absent Post Op Complications Complications None Follow Up Care/Instructions Patient Instructions None needed. Anesthesia/Patient Condition Patient Condition Patient is doing well, no complaints, stable vital signs, no apparent adverse anesthesia problems. No complications reported per nursing. SHERRIE MONTOYA CRNA Sep 28, 2017 08:11
[2017-09-28 08:15] VITALS: BP 113/68
[2017-09-28 08:45] VITALS: BP 123/83
[2017-09-28] MEDS ORDERED: GARAMYCIN RIGHT EAR ×2 (08:54)
[2017-09-28] MEDS ORDERED: LIDOCAINE PF 2% 5 ML (XYLOCAINE) VIAL ONE (09:14)
[2017-09-28 09:15] VITALS: BP 123/83
== END 2017-09-28 09:15 | disposition home or self-care (01) ==
LOC: SDC 06:08
PROVIDERS: ATTEND Otolaryngology Otolaryngology/Facial Plastic Surgery
DX: H92.11 Otorrhea, right ear (principal); H72.91 Unspecified perforation of tympanic membrane, right ear; R56.9 Unspecified convulsions; G80.9 Cerebral palsy, unspecified; F79 Unspecified intellectual disabilities; Z79.899 Other long term (current) drug therapy
CPT/HCPCS: 87070; 87075; 87077; 87081; 87186; 87205